=== PATIENT | female | born 1990 | race Caucasian/White ===

== ENCOUNTER 2021-07-15 13:14 | Emergency (ER) | payer OTHER, SELFPAY ==
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
[2021-07-15 13:18] VITALS: BP 99/72; PULSE 75; RESP 14; TEMP 36.8; O2SAT 100; BMI 28.1
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
[2021-07-15] MEDS: Ibuprofen 600 MG TABLET PO (14:08)
[2021-07-15 14:11] LABS: Appearance Urine CLOUDY; Color Urine YELLOW; Glucose Urine UA NEG (NEG); Leukocyte Esterase Urine NEG (NEG); Nitrite Urine NEG (NEG); PH 7.5 (5.0-8.0); Urine Blood NEG (NEG); Urine Ketones NEG (NEG); Urine Protein NEG (NEG-TRACE)
[2021-07-15 14:13] LABS: UPreg QC Valid YES; Urine Pregnancy NEGATIVE (NEGATIVE)
[2021-07-15 15:56] VITALS: BP 115/60; PULSE 69; RESP 16; TEMP 36.6; O2SAT 97
== END 2021-07-15 16:33 | disposition home or self-care (01) ==
PROVIDERS: Emergency Provider Emergency Medicine
DX: S40.012A Contusion of left shoulder, initial encounter (principal); S80.02XA Contusion of left knee, initial encounter; M54.2 Cervicalgia; V49.40XA Driver injured in collision with unspecified motor vehicles in traffic accident, initial encounter; Y93.9 Activity, unspecified; Y92.410 Unspecified street and highway as the place of occurrence of the external cause; Y99.9 Unspecified external cause status
CPT/HCPCS: 70450; 72125; 73030; 73562; 81003; 81025; 99284